=== PATIENT | female | born 1955 | race Caucasian/White ===

== ENCOUNTER 2020-04-19 18:32 | Inpatient (IN) | payer MEDICAID ==
[~2020-04-19] VITALS: Ht 152.4 cm; Wt 60.8 kg
[~2020-04-19 18:32] MED LIST: GABA300C PO; METO-292 PO; ONDA4TAB12 PO; ONDA8TAB9 PO; SUCR1ORA15 PO
[2020-04-19] MEDS ORDERED: normal saline 1000ML IV soln IV ONE (18:45)
[2020-04-19] MEDS ORDERED: proCHLORperazine 10 MG/2 ml inj IV ONE (18:50)
--- NOTE | 2020-04-19 19:01 | NUR ---
PT VERY PALE AND WEAK AND UNSTEADY ON HER FEET. CONTINUES TO DRY HEAVE AND HAS EPISODES OF MUCOID EMESIS. REPORTING PAIN TO HER RIGHT ABDOMEN. STATES NO HS OF SUCH SYMPTOMS. LARGE STERNAL SCAR NOTED TO HER CHEST. SHE REPORTS [address] BYPASS 2 YRS AGO. PT ALSO WITH MANY LAPROSCOPIC APPEARING SCARS TO HER LOWER ABDOMEN. [facility]. PRIMARY RN, ANGEL , UPDATED OF PT. RAPID COVID SWAB COLLECTED, ALTHOUGH PT REPORTS NO EXPOSURE AND THAT SHE HAS BEEN CHANDRA AT HOME AND FOLLOWING SOCIAL DISTANCING AND MASKING PRECAUTIONS.
[2020-04-19 19:33] LABS: BASOPHILS # (AUTO) 0.1 X10'3 (0-0.2); BASOPHILS % (AUTO) 0.9 % (0-1); EOSINOPHILS # (AUTO) 0.4 X10'3 (0-0.9); EOSINOPHILS % (AUTO) 3.8 % (0-6); HEMATOCRIT 40.6 % (35.0-45.0); HEMOGLOBIN 14.2 g/dl (12.0-16.0); LYMPHOCYTES # (AUTO) 0.9 X10'3 (1.1-4.8); LYMPHOCYTES % (AUTO) 9.3 % (21-51); MEAN CORPUSCULAR HEMOGLOBIN 31.8 PG (27.0-31.0); MEAN CORPUSCULAR HGB CONC 34.9 g/dL (33.0-36.5); MEAN CORPUSCULAR VOLUME 91.3 FL (78-98); MEAN PLATELET VOLUME 8.4 FL (7.4-10.4); MONOCYTES # (AUTO) 0.4 X10'3 (0-0.9); MONOCYTES % (AUTO) 4.2 % (2-12); NEUTROPHILS # (AUTO) 7.7 X10'3 (1.8-7.7); NEUTROPHILS % (AUTO) 81.8 % (42-75); PLATELET COUNT 215 X10'3 (140-440); RED BLOOD COUNT 4.45 X10'6 (4.20-5.60); RED CELL DISTRIBUTION WIDTH 12.7 % (11.5-14.5); WHITE BLOOD COUNT 9.4 X10'3 (4.5-11.0)
[2020-04-19 19:47] LABS: ALANINE AMINOTRANSFERASE 41 U/L (12-78); ALBUMIN 2.9 G/DL (3.4-5.0); ALBUMIN/GLOBULIN RATIO 0.7 (1.1-1.5); ALKALINE PHOSPHATASE 67 IU/L (46-116); ANION GAP 14 (8-16); ASPARTATE AMINO TRANSFERASE 49 U/L (10-37); BILIRUBIN,TOTAL 0.9 MG/DL (0.1-1.0); BLOOD UREA NITROGEN 38 MG/DL (7-18); CALCIUM 8.8 MG/DL (8.5-10.1); CHLORIDE 103 MMOL/L (99-107); CREATININE 1.41 MG/DL (0.40-0.90); ETHANOL < 0.010 GM/DL (0.0-0.010); GLUCOSE 169 MG/DL (70-104); LIPASE < 50 U/L (73-393); POTASSIUM 3.1 MMOL/L (3.5-5.1); SODIUM 142 MMOL/L (135-145); TOTAL CARBON DIOXIDE 25.4 MMOL/L (24-32); TOTAL PROTEIN 6.8 G/DL (6.4-8.2); eGFR 38 ML/MIN
[2020-04-19] MEDS ORDERED: aspirin 81mg tab.chew PO ONE (19:55)
[2020-04-19] MEDS ORDERED: CefTRIAXone 2gm/D5W 50ml BAG 50 ML IV ONE (20:05)
[2020-04-19 20:20] LABS: COLOR,URINE YELLOW (Yellow); GLUCOSE, URINE 250 mg/dl (Neg); KETONES,URINE >=80 mg/dl (Neg); LEUKOCYTE ESTERASE ,URINE NEGATIVE (Neg); NITRITES, URINE POSITIVE (Neg); OCCULT BLOOD,URINE LARGE (Neg); PROTEIN,URINE >=300 mg/dl (Neg)
[2020-04-19] MEDS ORDERED: metoprolol tartrate 1mg/ml inj IV ONE ×2 (20:25→23:00)
[2020-04-19 20:27] LABS: CLARITY,URINE CLEAR (Clear)
[2020-04-19 20:33] LABS: URINE AMPHETAMINE SCREEN NEGATIVE (Neg); URINE BARBITUATE SCREEN NEGATIVE (Neg); URINE BENZODIAZEPINES SCREEN NEGATIVE (Neg); URINE CANNABINOID SCREEN NEGATIVE (Neg); URINE COCAINE SCREEN NEGATIVE (Neg); URINE METHADONE SCREEN NEGATIVE (Neg); URINE OPIATE SCREEN NEGATIVE (Neg); URINE PHENCYCLIDINE SCREEN NEGATIVE (Neg)
[2020-04-19] MEDS ORDERED: heparin 10,000 units/1 ML INJ IV ONE ×2 (20:40→20:50)
[2020-04-19] MEDS ORDERED: nitroGLYCERIN 1gm ointment UD TP ONE (20:40)
[2020-04-19 20:41] LABS: UA COLLECTION TYPE STRAIGHT CATH
[2020-04-19 20:45] LABS: WBC,URINE 0-4 /HPF (0-4)
[2020-04-19 20:46] LABS: BACTERIA,URINE 4+ /HPF (Neg); MUCUS STRANDS NONE SEEN /LPF (Neg); SQUAMOUS EPITHELIAL CELL,UR FEW /LPF (FEW)
[2020-04-19 21:03] LABS: PARTIAL THROMBOPLASTIN TIME 28 SECONDS (22-32)
[2020-04-19] MEDS: heparin 25,000 UNIT/250ml bag 250 ML IV SCH (22:13)
--- NOTE | 2020-04-19 22:30 | NUR ---
MD aware of patients Blood Pressure despite previous treatment, no new orders at this time.
[2020-04-19] MEDS ORDERED: magnesium hydroxide 30ml (MOM) UD suspension PO PRN (22:45)
[2020-04-19] MEDS ORDERED: morphine 2 MG/ML inj. syringe IV PRN (22:45)
[2020-04-19] MEDS ORDERED: potassium Cl 40MEQ/1/2NS 520ml 520 ML IV PRN ×2 (22:45)
[2020-04-19] MEDS ORDERED: mag hydrox/Alum hydrox/simeth 30ml oral suspension PO PRN (22:45)
[2020-04-19] MEDS ORDERED: acetaminophen 325mg tablet PO PRN (22:45)
[2020-04-19] MEDS ORDERED: metoprolol tartrate 12.5mg (1/2 tablet) PO ONE (23:00)
[2020-04-19] MEDS ORDERED: glucagon, human recombinant 1mg kit SUBCUT PRN (23:05)
[2020-04-19] MEDS ORDERED: dextrose 50%-water 50ml dispensing syringe IV PRN ×2 (23:05)
[2020-04-19] MEDS ORDERED: MESSAGE TO PHARMACY PO ONE (23:05)
[2020-04-19] MEDS ORDERED: dextrose ORAL solution 15 GM/59 ML bottle PO PRN ×2 (23:05)
[2020-04-19] MEDS: ondansetron/PF 4mg/2ml inj IV PRN (23:36)
[2020-04-19] MEDS ORDERED: INSU100C4 SQ (23:58)
[2020-04-19] MEDS ORDERED: METF500T PO (23:58)
[2020-04-19] MEDS ORDERED: CLOP75TA34 PO (23:58)
[2020-04-19] MEDS ORDERED: OMEP-50 PO (23:58)
[2020-04-19] MEDS ORDERED: GABA300C PO (23:58)
[2020-04-19] MEDS ORDERED: METO25TA6 PO (23:58)
[2020-04-19] MEDS ORDERED: SERT25TA5 PO (23:58)
[2020-04-19] MEDS ORDERED: ATOR40TA PO (23:58)
[2020-04-20] MEDS: normal saline 1000ml 1,000 ML IV SCH ×3 (00:50→18:45)
[2020-04-20] MEDS ORDERED: metoprolol tartrate 1mg/ml inj IV ONE ×2 (01:05→03:00)
[2020-04-20] MEDS ORDERED: metoprolol tartrate 50mg tablet PO ONE (01:05)
[2020-04-20] MEDS ORDERED: metoprolol tartrate 25mg tablet PO ONE (01:10)
[2020-04-20] MEDS: metoprolol tartrate 1mg/ml inj IV SCH ×4 (01:19→03:25)
--- NOTE | 2020-04-20 02:34 | NUR ---
PAGGED DR CASTRO FOR PATIENT FOR PT BLOOD PRESSURE 222/97 MESSAGE LEFT
--- NOTE | 2020-04-20 02:49 | NUR ---
DR CASTRO RETURNED PAGE AWARE O FBLOOD PRESSURE AT 206/90
--- NOTE | 2020-04-20 03:58 | NUR ---
PAGGED DR SURESH ABOUT BP 225/96 DR CASTRO PRDERED VASOTEC 5 MG IV X1 NOW ORDER ENTERED
[2020-04-20] MEDS ORDERED: enalaprilat dihydrate 2.5mg/2ml vial IV ONE (04:05)
[2020-04-20] MEDS ORDERED: nitroGLYCERIN 1gm ointment UD TP ONE (04:16)
[2020-04-20] MEDS: amLODIPine 5mg tablet PO SCH (06:15)
[2020-04-20 07:35] LABS: BASOPHILS # (AUTO) 0.1 X10'3 (0-0.2); EOSINOPHILS % (AUTO) 0.2 % (0-6); HEMATOCRIT 41.1 % (35.0-45.0); HEMOGLOBIN 14.4 g/dl (12.0-16.0); LYMPHOCYTES # (AUTO) 0.6 X10'3 (1.1-4.8); LYMPHOCYTES % (AUTO) 6.2 % (21-51); MEAN CORPUSCULAR HEMOGLOBIN 32.5 PG (27.0-31.0); MEAN CORPUSCULAR HGB CONC 35.1 g/dL (33.0-36.5); MEAN CORPUSCULAR VOLUME 92.6 FL (78-98); MEAN PLATELET VOLUME 8.4 FL (7.4-10.4); MONOCYTES # (AUTO) 0.3 X10'3 (0-0.9); NEUTROPHILS # (AUTO) 9.2 X10'3 (1.8-7.7); NEUTROPHILS % (AUTO) 89.6 % (42-75); PLATELET COUNT 191 X10'3 (140-440); RED BLOOD COUNT 4.44 X10'6 (4.20-5.60); RED CELL DISTRIBUTION WIDTH 12.4 % (11.5-14.5); WHITE BLOOD COUNT 10.3 X10'3 (4.5-11.0)
[2020-04-20 07:49] LABS: ALANINE AMINOTRANSFERASE 28 U/L (12-78); ALBUMIN 2.1 G/DL (3.4-5.0); ALBUMIN/GLOBULIN RATIO 0.6 (1.1-1.5); ALKALINE PHOSPHATASE 64 IU/L (46-116); ANION GAP 16 (8-16); ASPARTATE AMINO TRANSFERASE 43 U/L (10-37); BILIRUBIN,TOTAL 0.6 MG/DL (0.1-1.0); BLOOD UREA NITROGEN 33 MG/DL (7-18); CALCIUM 7.5 MG/DL (8.5-10.1); CHLORIDE 104 MMOL/L (99-107); CREATININE 1.18 MG/DL (0.40-0.90); GLUCOSE 259 MG/DL (70-104); POTASSIUM 3.2 MMOL/L (3.5-5.1); SODIUM 141 MMOL/L (135-145); TOTAL CARBON DIOXIDE 21.2 MMOL/L (24-32); TOTAL PROTEIN 5.9 G/DL (6.4-8.2); eGFR 46 ML/MIN
[2020-04-20 07:51] LABS: CHOL/HDL RATIO 5.4 (0.00-4.99); CHOLESTEROL 265 MG/DL (0-200); HDL CHOLESTEROL 49 MG/DL (35-60); LDL CHOLESTEROL 187 MG/DL (50-100); TRIGLYCERIDES 107 MG/DL (20-135)
[2020-04-20] MEDS: K and/or MAG REPLACEMENT MC SCH ×2 (08:00→20:00)
[2020-04-20] MEDS ORDERED: CefTRIAXone/D5W-Rocephin 1gm 50 ML IV SCH (08:00)
[2020-04-20] MEDS: pantoprazole 40mg Tablet.DR PO SCH (08:15)
[2020-04-20] MEDS: sertraline 25mg tablet PO SCH (08:15)
[2020-04-20] MEDS: nitroGLYCERIN 1gm ointment UD TP SCH ×3 (08:15→16:00)
[2020-04-20] MEDS: clopidogrel 75mg tablet PO SCH (08:15)
[2020-04-20] MEDS: CefTRIAXone/D5W-Rocephin 1gm 50 ML IV SCH (08:15)
[2020-04-20] MEDS: metoprolol tartrate 25mg tablet PO SCH ×2 (08:17→20:40)
[2020-04-20] MEDS: gabapentin 100mg capsule PO SCH ×2 (08:17→20:40)
[2020-04-20] MEDS: atorvastatin 20mg tablet PO SCH (08:17)
[2020-04-20] MEDS: insulin Lispro (HumaLOG) vial - multi-dose SQ SCH (08:55)
--- NOTE | 2020-04-20 09:08 | NUR ---
TC FROM DAUGHTERANDRÉS, FOR CONDITION REPORT.
[2020-04-20] MEDS: heparin 10,000 units/1 ML INJ IV PRN (14:51)
[2020-04-20 15:00] VITALS: BP 116/60
[2020-04-20 17:15] VITALS: BP 116/60
[2020-04-20 18:00] VITALS: BP 144/74
--- NOTE | 2020-04-20 18:37 | NUR ---
Patient in room PCU 3016. I have received report from ANATOLY Churchill and had the opportunity to ask questions and assume patient care.
--- NOTE | 2020-04-20 18:43 | NUR ---
Problems reprioritized. Patient report given, questions answered & plan of care reviewed with Tasia LEDBETTER.
--- NOTE | 2020-04-20 18:59 | NUR ---
Patient did not eat any dinner and was last covered at breakfast. Will reassess blood sugar at 2100 and reassess for coverage need at that time.
--- NOTE | 2020-04-20 19:15 | NUR ---
Dr. Rico in to see patient. Provided telephone number for daughter. Collecting data. Requests records from [facility] in regards to CABG. Note left for health unit coordinator to get records; will also inform incoming RN.
[2020-04-20] MEDS ORDERED: aminophylline 250mg/10ml inj. IV PRN (19:25)
[2020-04-20] MEDS ORDERED: regadenoson 0.4mg/5ml syringe IV PRN (19:25)
[2020-04-20] MEDS ORDERED: nitroGLYCERIN 0.4mg SUBLingual tab SL PRN (19:25)
[2020-04-20] MEDS: lactobacillus rhamnosus 10,000 MMU CELLS/CAPSULE PO SCH (20:40)
[2020-04-20] MEDS: nitroGLYCERIN 0.4mg/hour patch TD SCH (20:41)
[2020-04-20] MEDS: insulin glargine (Lantus) pen - multi-dose SQ SCH (20:54)
--- NOTE | 2020-04-20 20:57 | NUR ---
PTT 133, stopped heparin gtt per protocol. notified.
[2020-04-20 22:44] VITALS: BP 109/59
--- NOTE | 2020-04-20 23:02 | NUR ---
Resumed heparin at 400 units per hour per protocol.
[2020-04-21] VITALS (22 sets, daily range): BP systolic 107–204; BP diastolic 43–100
[2020-04-21 03:10] LABS: BASOPHILS # (AUTO) 0.1 X10'3 (0-0.2); BASOPHILS % (AUTO) 0.7 % (0-1); EOSINOPHILS % (AUTO) 0.4 % (0-6); HEMATOCRIT 32.6 % (35.0-45.0); HEMOGLOBIN 11.1 g/dl (12.0-16.0); LYMPHOCYTES # (AUTO) 1.2 X10'3 (1.1-4.8); LYMPHOCYTES % (AUTO) 9.1 % (21-51); MEAN CORPUSCULAR HEMOGLOBIN 31.8 PG (27.0-31.0); MEAN CORPUSCULAR HGB CONC 33.9 g/dL (33.0-36.5); MEAN CORPUSCULAR VOLUME 93.7 FL (78-98); MEAN PLATELET VOLUME 8.9 FL (7.4-10.4); MONOCYTES # (AUTO) 0.9 X10'3 (0-0.9); MONOCYTES % (AUTO) 6.8 % (2-12); NEUTROPHILS # (AUTO) 10.7 X10'3 (1.8-7.7); PLATELET COUNT 223 X10'3 (140-440); RED BLOOD COUNT 3.48 X10'6 (4.20-5.60); RED CELL DISTRIBUTION WIDTH 12.9 % (11.5-14.5); WHITE BLOOD COUNT 12.9 X10'3 (4.5-11.0)
[2020-04-21 03:35] LABS: ALANINE AMINOTRANSFERASE 20 U/L (12-78); ALBUMIN 1.8 G/DL (3.4-5.0); ALBUMIN/GLOBULIN RATIO 0.6 (1.1-1.5); ALKALINE PHOSPHATASE 47 IU/L (46-116); ANION GAP 13 (8-16); ASPARTATE AMINO TRANSFERASE 25 U/L (10-37); BILIRUBIN,TOTAL 0.3 MG/DL (0.1-1.0); BLOOD UREA NITROGEN 50 MG/DL (7-18); BUN/CREATININE RATIO 24.4 (6.6-38.0); CALCIUM 7.3 MG/DL (8.5-10.1); CHLORIDE 107 MMOL/L (99-107); CREATININE 2.05 MG/DL (0.40-0.90); GLUCOSE 280 MG/DL (70-104); POTASSIUM 3.7 MMOL/L (3.5-5.1); SODIUM 141 MMOL/L (135-145); TOTAL CARBON DIOXIDE 20.8 MMOL/L (24-32); TOTAL PROTEIN 4.6 G/DL (6.4-8.2); eGFR 24 ML/MIN
[2020-04-21] MEDS: normal saline 1000ml 1,000 ML IV SCH ×2 (04:45→07:41)
--- NOTE | 2020-04-21 06:07 | NUR ---
Problems reprioritized. Patient report given, questions answered & plan of care reviewed with ANATOLY Hernandez.
--- NOTE | 2020-04-21 06:16 | NUR ---
Patient in room PCU 3016. I have received report from Tasia LEDBETTER and had the opportunity to ask questions and assume patient care. Patient asleep in bed and resting comfortably. In no acute distress. All immediate needs met at this time.
[2020-04-21] MEDS: CefTRIAXone/D5W-Rocephin 1gm 50 ML IV SCH (07:33)
[2020-04-21] MEDS: atorvastatin 20mg tablet PO SCH (07:34)
[2020-04-21] MEDS: sertraline 25mg tablet PO SCH (07:34)
[2020-04-21] MEDS: pantoprazole 40mg Tablet.DR PO SCH (07:34)
[2020-04-21] MEDS: gabapentin 100mg capsule PO SCH ×2 (07:35→20:25)
[2020-04-21] MEDS: lactobacillus rhamnosus 10,000 MMU CELLS/CAPSULE PO SCH ×2 (07:35→20:24)
[2020-04-21] MEDS: clopidogrel 75mg tablet PO SCH (07:35)
[2020-04-21] MEDS: metoprolol tartrate 25mg tablet PO SCH ×2 (08:00→20:25)
[2020-04-21] MEDS: K and/or MAG REPLACEMENT MC SCH ×2 (08:00→20:00)
[2020-04-21] MEDS: amLODIPine 5mg tablet PO SCH (08:00)
[2020-04-21] MEDS: ondansetron/PF 4mg/2ml inj IV PRN ×2 (08:52→17:25)
[2020-04-21] MEDS: metoprolol tartrate 1mg/ml inj IV PRN ×3 (09:51→10:23)
[2020-04-21] MEDS: heparin 10,000 units/1 ML INJ IV PRN (12:02)
[2020-04-21] MEDS: heparin 25,000 UNIT/250ml bag 250 ML IV SCH ×2 (12:05→20:22)
[2020-04-21] MEDS: nitroGLYCERIN 0.4mg/hour patch TD SCH (12:20)
--- NOTE | 2020-04-21 12:38 | NUR ---
New orders from Dr. Roberson: Reglan 5 mg Q6H PRN, Hydralazine 5 mg IV PRN Q6H for SBP > 160.
[2020-04-21] MEDS: metoclopramide 5 mg/ml inj IV PRN (12:48)
[2020-04-21] MEDS: hydrALAZINE 20mg/ml inj. IV PRN (13:09)
[2020-04-21] MEDS ORDERED: normal saline 1000ml 1,000 ML IV SCH (13:10)
[2020-04-21] MEDS: insulin Lispro (HumaLOG) vial - multi-dose SQ SCH (13:12)
--- NOTE | 2020-04-21 13:32 | NUR ---
Paged Dr. Roberson PAGER ID: [phone] MESSAGE: RE: Fartun John [id number]. FYI - Lexiscan is negative. OK to feed patient? Thank you. Mary [phone]
--- NOTE | 2020-04-21 16:30 | NUR ---
Case discussed with Dr. Rico with is in to round on patient. New orders placed to increase lipitor given LDL remains elevated. Start baby ASA. Start lisinopril 10 mg BID and consider increase if BP remains elevated.
--- NOTE | 2020-04-21 18:24 | NUR ---
[place]rientee documentation: I have reviewed and agree with all interventions, assessments performed and documented by ANATOLY Gray. [place] Medication Administration: For this medication-pass time frame, all medication were reviewed, dispensed, administered and documented per hospital policy by ANATOLY Gray.
--- NOTE | 2020-04-21 18:25 | NUR ---
Problems reprioritized. Patient report given, questions answered & plan of care reviewed with ANATOLY Vincent. Patient stable at transfer of care.
--- NOTE | 2020-04-21 18:40 | NUR ---
Patient in room PCU 3016. I have received report from Mary RN and ANATOLY Gomez and had the opportunity to ask questions and assume patient care.
[2020-04-21] MEDS: lisinopril 10 MG tablet PO SCH (20:24)
[2020-04-21] MEDS: insulin glargine (Lantus) pen - multi-dose SQ SCH (22:59)
[2020-04-22] VITALS (7 sets, daily range): BP systolic 106–210; BP diastolic 52–89
[2020-04-22] MEDS ORDERED: amLODIPine 5mg tablet PO ONE (03:05)
[2020-04-22] MEDS: heparin 25,000 UNIT/250ml bag 250 ML IV SCH (03:15)
--- NOTE | 2020-04-22 06:10 | NUR ---
Patient in room PCU 3016. I have received report from Melisa LEDBETTER and had the opportunity to ask questions and assume patient care.
--- NOTE | 2020-04-22 06:19 | NUR ---
Problems reprioritized. Patient report given, questions answered & plan of care reviewed with ANATOLY Barragan.
[2020-04-22 07:23] LABS: BASOPHILS % (AUTO) 0.3 % (0-1); EOSINOPHILS % (AUTO) 0.1 % (0-6); HEMATOCRIT 38.1 % (35.0-45.0); HEMOGLOBIN 13.2 g/dl (12.0-16.0); LYMPHOCYTES # (AUTO) 0.6 X10'3 (1.1-4.8); LYMPHOCYTES % (AUTO) 5.2 % (21-51); MEAN CORPUSCULAR HEMOGLOBIN 32.1 PG (27.0-31.0); MEAN CORPUSCULAR HGB CONC 34.5 g/dL (33.0-36.5); MEAN PLATELET VOLUME 9.3 FL (7.4-10.4); MONOCYTES # (AUTO) 0.7 X10'3 (0-0.9); MONOCYTES % (AUTO) 5.8 % (2-12); NEUTROPHILS # (AUTO) 10.9 X10'3 (1.8-7.7); NEUTROPHILS % (AUTO) 88.6 % (42-75); PLATELET COUNT 190 X10'3 (140-440); RED CELL DISTRIBUTION WIDTH 12.8 % (11.5-14.5); WHITE BLOOD COUNT 12.3 X10'3 (4.5-11.0)
[2020-04-22] MEDS: pantoprazole 40mg Tablet.DR PO SCH (07:30)
[2020-04-22] MEDS: metoprolol tartrate 25mg tablet PO SCH ×2 (07:31→20:00)
[2020-04-22] MEDS: nitroGLYCERIN 0.4mg/hour patch TD SCH (07:34)
[2020-04-22] MEDS: CefTRIAXone/D5W-Rocephin 1gm 50 ML IV SCH (07:38)
[2020-04-22] MEDS: heparin 10,000 units/1 ML INJ IV PRN (07:46)
[2020-04-22 07:50] LABS: ALANINE AMINOTRANSFERASE 22 U/L (12-78); ALBUMIN 2.1 G/DL (3.4-5.0); ALBUMIN/GLOBULIN RATIO 0.6 (1.1-1.5); ALKALINE PHOSPHATASE 57 IU/L (46-116); ANION GAP 15 (8-16); ASPARTATE AMINO TRANSFERASE 28 U/L (10-37); BILIRUBIN,TOTAL 0.3 MG/DL (0.1-1.0); BLOOD UREA NITROGEN 53 MG/DL (7-18); BUN/CREATININE RATIO 34.6 (6.6-38.0); CALCIUM 7.8 MG/DL (8.5-10.1); CHLORIDE 107 MMOL/L (99-107); CREATININE 1.53 MG/DL (0.40-0.90); GLUCOSE 258 MG/DL (70-104); POTASSIUM 3.5 MMOL/L (3.5-5.1); SODIUM 140 MMOL/L (135-145); TOTAL CARBON DIOXIDE 18.3 MMOL/L (24-32); TOTAL PROTEIN 5.7 G/DL (6.4-8.2); eGFR 34 ML/MIN
[2020-04-22] MEDS: lisinopril 10 MG tablet PO SCH ×2 (08:00→20:00)
[2020-04-22] MEDS: K and/or MAG REPLACEMENT MC SCH ×2 (08:00→20:00)
[2020-04-22] MEDS: atorvastatin 20mg tablet PO SCH (08:00)
[2020-04-22] MEDS: clopidogrel 75mg tablet PO SCH (08:00)
[2020-04-22] MEDS: lactobacillus rhamnosus 10,000 MMU CELLS/CAPSULE PO SCH ×2 (08:00→20:00)
[2020-04-22] MEDS: gabapentin 100mg capsule PO SCH ×2 (08:00→20:00)
[2020-04-22] MEDS: sertraline 25mg tablet PO SCH (08:00)
[2020-04-22] MEDS: furosemide 20 MG/2 ML vial IV SCH (08:22)
[2020-04-22] MEDS: ondansetron/PF 4mg/2ml inj IV PRN (08:22)
[2020-04-22] MEDS: aspirin 81mg tab.chew PO SCH (08:30)
[2020-04-22] MEDS: insulin Lispro (HumaLOG) vial - multi-dose SQ SCH (09:00)
[2020-04-22] MEDS: metoclopramide 5 mg/ml inj IV PRN (09:41)
--- NOTE | 2020-04-22 11:42 | NUR ---
PAGER ID: [phone] MESSAGE: Re: Fartun John. Room 3016A. Phenegran only available in PO form. Pharmacist recommends Compazine IV. -[facility] #[phone] Dr. Lopez paged concerning medications
[2020-04-22] MEDS ORDERED: proMETHazine 25mg rectal suppository RC PRN (11:55)
--- NOTE | 2020-04-22 12:27 | NUR ---
Harper cath removed. Pt tolerated well. 10ml of saline removed from balloon.
--- NOTE | 2020-04-22 13:59 | NUR ---
PAGER ID: [phone] MESSAGE: Re: AlvaroFartun. Room: 3013B. Pt still complaining of nausea after rectal phenegran. Not able to keep PO meds or food/liquids down. -[facility] #[id number] Dr. Lopez paged concerning Pt's nausea.
--- NOTE | 2020-04-22 16:31 | NUR ---
Pt bladder scanned; 118ml
--- NOTE | 2020-04-22 16:36 | NUR ---
PAGER ID: [phone] MESSAGE: Re: Fartun John. Room: 3013b. Pt refusing PO intake/meds due to feeling nauseated. Do you want IV fluids started due to low PO fluid intake? -[facility] #[id number] Dr. Lopez paged concerning pt's N/V and PO intake
--- NOTE | 2020-04-22 18:45 | NUR ---
Problems reprioritized. Patient report given, questions answered & plan of care reviewed with Courtney LEDBETTER.
--- NOTE | 2020-04-22 20:00 | NUR ---
report recieved from Twyla RN, patient refused NGTUBE at this moment. she does not tolerate the procedure. resting quietlly on bed. no complaining of nausea/vomiting. has moderate bm. keep monitoring
[2020-04-22] MEDS: hydrALAZINE 20mg/ml inj. IV PRN (20:38)
[2020-04-22] MEDS: normal saline 1000ml 1,000 ML IV SCH (20:41)
[2020-04-22] MEDS: insulin glargine (Lantus) pen - multi-dose SQ SCH (23:07)
[2020-04-23] VITALS (8 sets, daily range): BP systolic 109–188; BP diastolic 57–94
[2020-04-23] MEDS: hydrALAZINE 20mg/ml inj. IV PRN ×3 (02:27→22:45)
--- NOTE | 2020-04-23 04:52 | NUR ---
Page Sent promotional table spacer PAGER ID: [phone] MESSAGE: PT in room 3013b REFUSED NGTUBE, NO C/O OF NAUSEA ANYMORE. PLEASE ADVISE. [id number] (82 character message out of a maximum of 240)
--- NOTE | 2020-04-23 05:40 | NUR ---
MD CALLED BACK SHE SAID TO TRY ONE MORE TIME AND SHE WILL REPORT IT TO THE MORNING TEAM. NO NEED TO CALL HER BACK.
--- NOTE | 2020-04-23 06:05 | NUR ---
Patient in room PCU 3013. I have received report from Courtney LEDBETTER and had the opportunity to ask questions and assume patient care.
--- NOTE | 2020-04-23 06:20 | NUR ---
Problems reprioritized. Patient report given, questions answered & plan of care reviewed with Twyla LEDBETTER
[2020-04-23 06:53] LABS: BASOPHILS # (AUTO) 0.1 X10'3 (0-0.2); BASOPHILS % (AUTO) 0.5 % (0-1); EOSINOPHILS % (AUTO) 0.2 % (0-6); HEMATOCRIT 37.9 % (35.0-45.0); LYMPHOCYTES # (AUTO) 0.7 X10'3 (1.1-4.8); LYMPHOCYTES % (AUTO) 5.7 % (21-51); MEAN CORPUSCULAR HEMOGLOBIN 31.8 PG (27.0-31.0); MEAN CORPUSCULAR HGB CONC 34.4 g/dL (33.0-36.5); MEAN CORPUSCULAR VOLUME 92.4 FL (78-98); MEAN PLATELET VOLUME 9.1 FL (7.4-10.4); MONOCYTES # (AUTO) 0.6 X10'3 (0-0.9); MONOCYTES % (AUTO) 4.5 % (2-12); NEUTROPHILS # (AUTO) 10.9 X10'3 (1.8-7.7); NEUTROPHILS % (AUTO) 89.1 % (42-75); PLATELET COUNT 248 X10'3 (140-440); RED CELL DISTRIBUTION WIDTH 13.3 % (11.5-14.5); WHITE BLOOD COUNT 12.3 X10'3 (4.5-11.0)
[2020-04-23] MEDS: CefTRIAXone/D5W-Rocephin 1gm 50 ML IV SCH (07:28)
[2020-04-23] MEDS: furosemide 20 MG/2 ML vial IV SCH (07:35)
[2020-04-23] MEDS: lisinopril 10 MG tablet PO SCH ×2 (07:36→20:55)
[2020-04-23] MEDS: metoprolol tartrate 25mg tablet PO SCH ×2 (07:39→20:56)
[2020-04-23] MEDS: pantoprazole 40mg Tablet.DR PO SCH (07:46)
[2020-04-23] MEDS: clopidogrel 75mg tablet PO SCH (08:00)
[2020-04-23] MEDS: atorvastatin 20mg tablet PO SCH (08:00)
[2020-04-23] MEDS: K and/or MAG REPLACEMENT MC SCH ×2 (08:00→20:00)
[2020-04-23] MEDS: gabapentin 100mg capsule PO SCH ×2 (08:00→20:56)
[2020-04-23] MEDS: nitroGLYCERIN 0.4mg/hour patch TD SCH (08:00)
[2020-04-23] MEDS: lactobacillus rhamnosus 10,000 MMU CELLS/CAPSULE PO SCH ×2 (08:00→22:45)
[2020-04-23 08:32] LABS: ALANINE AMINOTRANSFERASE 21 U/L (12-78); ALBUMIN/GLOBULIN RATIO 0.6 (1.1-1.5); ANION GAP 16 (8-16); ASPARTATE AMINO TRANSFERASE 30 U/L (10-37); BILIRUBIN,TOTAL 0.3 MG/DL (0.1-1.0); BLOOD UREA NITROGEN 53 MG/DL (7-18); BUN/CREATININE RATIO 35.6 (6.6-38.0); CHLORIDE 101 MMOL/L (99-107); CREATININE 1.49 MG/DL (0.40-0.90); GLUCOSE 191 MG/DL (70-104); SODIUM 134 MMOL/L (135-145); TOTAL CARBON DIOXIDE 17.3 MMOL/L (24-32); TOTAL PROTEIN 5.3 G/DL (6.4-8.2); eGFR 35 ML/MIN
[2020-04-23 08:34] LABS: POTASSIUM 3.4 MMOL/L (3.5-5.1)
[2020-04-23 09:14] LABS: ALKALINE PHOSPHATASE 56 IU/L (46-116)
[2020-04-23] MEDS: insulin Lispro (HumaLOG) vial - multi-dose SQ SCH ×2 (09:15→13:49)
--- NOTE | 2020-04-23 09:47 | NUR ---
PAGER ID: [phone] MESSAGE: Re: Carl Johna. Room: 3013B. Pt has morning potassium of 3.4. Can I put replacement orders in? -[facility] #[id number] Dr. Lopez paged concerning Pt's potassium level and replacement orders.
[2020-04-23] MEDS: sertraline 25mg tablet PO SCH (10:28)
[2020-04-23] MEDS ORDERED: magnesium 4gm in 100ml NS 100 ML IV PRN (10:45)
[2020-04-23] MEDS ORDERED: potassium Cl 20 mEq SR tablet PO PRN (10:45)
[2020-04-23] MEDS ORDERED: magnesium Cl slow-release 64mg tablet PO PRN (10:45)
[2020-04-23] MEDS: potassium Cl 40MEQ/1/2NS 520ml 520 ML IV PRN (11:15)
[2020-04-23] MEDS: aspirin 81mg tab.chew PO SCH (11:39)
[2020-04-23] MEDS: metoclopramide 5 mg/ml inj IV PRN (13:25)
[2020-04-23] MEDS: normal saline 1000ml 1,000 ML IV SCH (16:56)
[2020-04-23] MEDS: metoclopramide 5 mg/ml inj IV SCH ×2 (16:57→20:59)
--- NOTE | 2020-04-23 17:10 | NUR ---
Pt blood sugar 49 - pt asymptomatic. 50mls of D50 administered IV. Will recheck blood sugar in 20 minutes.
--- NOTE | 2020-04-23 18:05 | NUR ---
Problems reprioritized. Patient report given, questions answered & plan of care reviewed with Vale LEDBETTER.
--- NOTE | 2020-04-23 18:39 | NUR ---
Patient in room PCU 3013. I have received report from Yung LEDBETTER and had the opportunity to ask questions and assume patient care.
[2020-04-23] MEDS: enoxaparin 40mg/0.4ml syringe SUBCUT SCH (21:01)
--- NOTE | 2020-04-23 22:30 | NUR ---
Lantus 14U admin., which is the same amount as 04/22. Pt tolerating only very sml amts PO fluids, AM BS: 208 and Lantus would normally be increased. SBP: 188, Hydralazine IV admin PRN as ordered.
[2020-04-23] MEDS: insulin glargine (Lantus) pen - multi-dose SQ SCH (22:56)
[2020-04-24] VITALS (22 sets, daily range): BP systolic 62–196; BP diastolic 36–88
[2020-04-24] MEDS ORDERED: lisinopril 10 MG tablet PO ONE (02:30)
--- NOTE | 2020-04-24 02:30 | NUR ---
Dr. White notified of 0200 BP: 183/81. One time Lisinopril 10mg PO ordered and admin.
[2020-04-24] MEDS: normal saline 1000ml 1,000 ML IV SCH ×2 (04:00→20:40)
--- NOTE | 2020-04-24 06:05 | NUR ---
Patient in room PCU 3013. I have received report from Vale LEDBETTER and had the opportunity to ask questions and assume patient care.
--- NOTE | 2020-04-24 06:25 | NUR ---
Problems reprioritized. Patient report given, questions answered & plan of care reviewed with Yung LEDBETTER.
[2020-04-24] MEDS: metoclopramide 5 mg/ml inj IV SCH ×4 (07:11→21:09)
[2020-04-24] MEDS: furosemide 20 MG/2 ML vial IV SCH (07:11)
[2020-04-24] MEDS: CefTRIAXone/D5W-Rocephin 1gm 50 ML IV SCH (07:11)
[2020-04-24] MEDS: pantoprazole 40mg Tablet.DR PO SCH (07:30)
[2020-04-24] MEDS: lactobacillus rhamnosus 10,000 MMU CELLS/CAPSULE PO SCH ×2 (08:00→19:32)
[2020-04-24] MEDS: atorvastatin 20mg tablet PO SCH (08:00)
[2020-04-24] MEDS: K and/or MAG REPLACEMENT MC SCH ×2 (08:00→20:00)
[2020-04-24] MEDS: clopidogrel 75mg tablet PO SCH (08:00)
[2020-04-24] MEDS: gabapentin 100mg capsule PO SCH ×2 (08:00→19:31)
[2020-04-24 08:06] LABS: BASOPHILS % (AUTO) 0.5 % (0-1); EOSINOPHILS # (AUTO) 0.1 X10'3 (0-0.9); HEMATOCRIT 41.7 % (35.0-45.0); HEMOGLOBIN 14.7 g/dl (12.0-16.0); LYMPHOCYTES # (AUTO) 0.8 X10'3 (1.1-4.8); LYMPHOCYTES % (AUTO) 9.2 % (21-51); MEAN CORPUSCULAR HEMOGLOBIN 32.6 PG (27.0-31.0); MEAN CORPUSCULAR HGB CONC 35.3 g/dL (33.0-36.5); MEAN CORPUSCULAR VOLUME 92.5 FL (78-98); MEAN PLATELET VOLUME 8.3 FL (7.4-10.4); MONOCYTES # (AUTO) 0.6 X10'3 (0-0.9); MONOCYTES % (AUTO) 7.1 % (2-12); NEUTROPHILS # (AUTO) 7.5 X10'3 (1.8-7.7); NEUTROPHILS % (AUTO) 82.2 % (42-75); PLATELET COUNT 238 X10'3 (140-440); RED BLOOD COUNT 4.51 X10'6 (4.20-5.60); WHITE BLOOD COUNT 9.1 X10'3 (4.5-11.0)
[2020-04-24] MEDS: nitroGLYCERIN 0.4mg/hour patch TD SCH (08:06)
[2020-04-24] MEDS: lisinopril 10 MG tablet PO SCH ×2 (08:06→19:33)
[2020-04-24] MEDS: metoprolol tartrate 25mg tablet PO SCH ×2 (08:07→19:32)
[2020-04-24 08:16] LABS: ALBUMIN 2.1 G/DL (3.4-5.0); ANION GAP 10 (8-16); BLOOD UREA NITROGEN 40 MG/DL (7-18); BUN/CREATININE RATIO 30.5 (6.6-38.0); CALCIUM 7.9 MG/DL (8.5-10.1); CHLORIDE 106 MMOL/L (99-107); CREATININE 1.31 MG/DL (0.40-0.90); GLUCOSE 201 MG/DL (70-104); SODIUM 139 MMOL/L (135-145); TOTAL CARBON DIOXIDE 23.1 MMOL/L (24-32); eGFR 41 ML/MIN
--- NOTE | 2020-04-24 08:29 | NUR ---
PAGER ID: [phone] MESSAGE: Re: Fartun John. Room: 3013B. Critical potassium 3.0. Will replace with IV potassium protocol. -[facility] #[id number] Dr. payan paged concerning Pt's critical potassium
[2020-04-24] MEDS: aspirin 81mg tab.chew PO SCH (08:30)
[2020-04-24] MEDS: insulin Lispro (HumaLOG) vial - multi-dose SQ SCH (09:27)
[2020-04-24] MEDS: sertraline 25mg tablet PO SCH (09:29)
[2020-04-24] MEDS: potassium Cl 40MEQ/1/2NS 520ml 520 ML IV PRN ×2 (09:43→18:00)
[2020-04-24] MEDS: hydrALAZINE 20mg/ml inj. IV PRN ×2 (10:24→23:05)
--- NOTE | 2020-04-24 11:10 | NUR ---
Pt taken down to GI lab for EGD
[2020-04-24] MEDS ORDERED: LIDOcaine Viscous 15ml cup ONE (11:12)
[2020-04-24] MEDS ORDERED: fentaNYL/PF 50MCG/1 ML 2ML syringe ONE (11:12)
[2020-04-24] MEDS ORDERED: MIDAZolam 5mg/5ml vial ONE (11:12)
--- NOTE | 2020-04-24 13:37 | NUR ---
Pt returned from Gi lab/EGD. Vitals: 122/60, HR 80, O2 96% RA, RR 16. Pt alert and oriented. Will Continue to round on Pt and recheck vitals q15min x 1 hour.
--- NOTE | 2020-04-24 13:46 | NUR ---
Initial: Pt admit with NSTEMI, emphysematous E Coli UTI, CARMELINA, and N/V. Pt on a full liquid CHO controlled diet documented with mostly 0% PO intake not meeting estimated nutrient needs. Pt vomits with PO intake and started on Reglan for possible gastroparesis per MD note. Pt refused NG tube per RN notes. Pt s/p EGD today, per results: "No findings that would explain her severe dysphagia. Multiple rings in the mid and distal esophagus, which were nonobstructing. This raises the possibility of eosinophilic esophagitis, biopsies were obtained; small superficial ulcer in the mid esophagus, raising the possibility of a pill ulcer". MD recommends ST consult. LBM 04/23. Will continue to follow closely and make recommendations as appropriate pending ST assessment. Recommendations: 1) Advance to regular diet as medically indicated following ST assessment. Pt with hx DM though A1c 6.8% and pt with poor PO intake 2) If PO intake improves with diet advancement, heart healthy CHO controlled diet 3) Pt may benefit from alternative nutrition to meet estimated nutrient needs if unable to tolerate PO intake; currently poor PO intake x 4 days 4) Bowel care per rx 5) Scaled weights per rx Addendum: 04/24/20 at [address] Amended: Links added.
[2020-04-24] MEDS ORDERED: LORazepam 1 MG tablet PO PRN (13:55)
[2020-04-24] MEDS: gabapentin 300mg capsule PO SCH (16:00)
--- NOTE | 2020-04-24 18:20 | NUR ---
Problems reprioritized. Patient report given, questions answered & plan of care reviewed with Vale LEDBETTER.
--- NOTE | 2020-04-24 18:30 | NUR ---
Patient in room PCU 3013. I have received report from Yung LEDBETTER and had the opportunity to ask questions and assume patient care.
[2020-04-24] MEDS: enoxaparin 40mg/0.4ml syringe SUBCUT SCH (19:33)
[2020-04-24] MEDS: insulin glargine (Lantus) pen - multi-dose SQ SCH (21:38)
[2020-04-25] VITALS (7 sets, daily range): BP systolic 112–170; BP diastolic 58–81
--- NOTE | 2020-04-25 06:45 | NUR ---
Problems reprioritized. Patient report given, questions answered & plan of care reviewed with Kerline LEDBETTER.
--- NOTE | 2020-04-25 06:47 | NUR ---
Patient in room PCU 3013. I have received report from Vale LEBDETTER and had the opportunity to ask questions and assume patient care.
[2020-04-25 07:31] LABS: ALANINE AMINOTRANSFERASE 27 U/L (12-78); ALBUMIN 1.6 G/DL (3.4-5.0); ALBUMIN/GLOBULIN RATIO 0.6 (1.1-1.5); ALKALINE PHOSPHATASE 47 IU/L (46-116); ANION GAP 6 (8-16); ASPARTATE AMINO TRANSFERASE 31 U/L (10-37); BASOPHILS # (AUTO) 0.1 X10'3 (0-0.2); BASOPHILS % (AUTO) 0.8 % (0-1); BILIRUBIN,TOTAL 0.2 MG/DL (0.1-1.0); BLOOD UREA NITROGEN 35 MG/DL (7-18); BUN/CREATININE RATIO 30.7 (6.6-38.0); CALCIUM 7.6 MG/DL (8.5-10.1); CHLORIDE 110 MMOL/L (99-107); CREATININE 1.14 MG/DL (0.40-0.90); EOSINOPHILS # (AUTO) 0.2 X10'3 (0-0.9); EOSINOPHILS % (AUTO) 3.3 % (0-6); GLUCOSE 111 MG/DL (70-104); HEMATOCRIT 34.3 % (35.0-45.0); HEMOGLOBIN 12.1 g/dl (12.0-16.0); LYMPHOCYTES # (AUTO) 1.5 X10'3 (1.1-4.8); LYMPHOCYTES % (AUTO) 21.2 % (21-51); MEAN CORPUSCULAR HEMOGLOBIN 32.5 PG (27.0-31.0); MEAN CORPUSCULAR HGB CONC 35.2 g/dL (33.0-36.5); MEAN CORPUSCULAR VOLUME 92.3 FL (78-98); MEAN PLATELET VOLUME 9.4 FL (7.4-10.4); MONOCYTES # (AUTO) 0.7 X10'3 (0-0.9); MONOCYTES % (AUTO) 10.2 % (2-12); NEUTROPHILS # (AUTO) 4.5 X10'3 (1.8-7.7); NEUTROPHILS % (AUTO) 64.5 % (42-75); PLATELET COUNT 199 X10'3 (140-440); POTASSIUM 3.4 MMOL/L (3.5-5.1); RED BLOOD COUNT 3.72 X10'6 (4.20-5.60); RED CELL DISTRIBUTION WIDTH 13.1 % (11.5-14.5); SODIUM 139 MMOL/L (135-145); TOTAL CARBON DIOXIDE 23.4 MMOL/L (24-32); TOTAL PROTEIN 4.4 G/DL (6.4-8.2); eGFR 48 ML/MIN
[2020-04-25] MEDS: K and/or MAG REPLACEMENT MC SCH ×2 (08:00→20:00)
[2020-04-25] MEDS: lactobacillus rhamnosus 10,000 MMU CELLS/CAPSULE PO SCH ×3 (08:00→20:50)
[2020-04-25] MEDS: metoprolol tartrate 25mg tablet PO SCH ×2 (09:08→20:51)
[2020-04-25] MEDS: lisinopril 10 MG tablet PO SCH ×2 (09:09→20:52)
[2020-04-25] MEDS: pantoprazole 40mg Tablet.DR PO SCH (09:13)
[2020-04-25] MEDS: sertraline 25mg tablet PO SCH (09:13)
[2020-04-25] MEDS: clopidogrel 75mg tablet PO SCH (09:13)
[2020-04-25] MEDS: atorvastatin 20mg tablet PO SCH (09:13)
[2020-04-25] MEDS: aspirin 81mg tab.chew PO SCH (09:13)
[2020-04-25] MEDS: metoclopramide 5 mg/ml inj IV SCH ×4 (09:14→20:53)
[2020-04-25] MEDS: potassium Cl 20 mEq SR tablet PO PRN ×2 (09:14→10:30)
[2020-04-25] MEDS: furosemide 20 MG/2 ML vial IV SCH (09:14)
[2020-04-25] MEDS: CefTRIAXone/D5W-Rocephin 1gm 50 ML IV SCH (09:15)
[2020-04-25] MEDS: nitroGLYCERIN 0.4mg/hour patch TD SCH (09:30)
[2020-04-25] MEDS: hydrALAZINE 20mg/ml inj. IV PRN (09:55)
[2020-04-25] MEDS: normal saline 1000ml 1,000 ML IV SCH (10:51)
[2020-04-25] MEDS ORDERED: lisinopril 10 MG tablet PO ONE (11:05)
[2020-04-25] MEDS: gabapentin 300mg capsule PO SCH ×3 (11:37→20:52)
[2020-04-25] MEDS: LORazepam 1 MG tablet PO SCH ×2 (11:37→20:50)
[2020-04-25] MEDS: potassium Cl 40MEQ/1/2NS 520ml 520 ML IV PRN (11:40)
--- NOTE | 2020-04-25 12:55 | NUR ---
NG tube, 14 libyan inserted at bedside, set to low intermittent suction.
[2020-04-25] MEDS ORDERED: ibuprofen 200mg tablet PO PRN (18:30)
--- NOTE | 2020-04-25 18:33 | NUR ---
Problems reprioritized. Patient report given, questions answered & plan of care reviewed with Samaria LEDBETTER.
--- NOTE | 2020-04-25 19:12 | NUR ---
I have received report from Kerline LEDBETTER and had the opportunity to ask questions and assume patient care.
[2020-04-25] MEDS: enoxaparin 40mg/0.4ml syringe SUBCUT SCH (20:52)
[2020-04-25] MEDS: insulin glargine (Lantus) pen - multi-dose SQ SCH (21:00)
[2020-04-26] VITALS (7 sets, daily range): BP systolic 116–189; BP diastolic 50–78
--- NOTE | 2020-04-26 01:29 | NUR ---
MD called regarding pt being very sleepy and unable/didn't feel urge to go to bathroom. pt was bladder scanned. scan showed 530ml. MD said to put scheduled ativan on hold and straight cath >400.
[2020-04-26] MEDS: normal saline 1000ml 1,000 ML IV SCH ×2 (03:58→20:26)
--- NOTE | 2020-04-26 06:06 | NUR ---
Problems reprioritized. Patient report given, questions answered & plan of care reviewed with Kerline LEDBETTER.
--- NOTE | 2020-04-26 06:30 | NUR ---
Patient in room PCU 3013. I have received report from ANATOLY Mera and had the opportunity to ask questions and assume patient care.
[2020-04-26 07:01] LABS: ALANINE AMINOTRANSFERASE 36 U/L (12-78); ALBUMIN 1.7 G/DL (3.4-5.0); ALBUMIN/GLOBULIN RATIO 0.6 (1.1-1.5); ALKALINE PHOSPHATASE 50 IU/L (46-116); ANION GAP 6 (8-16); ASPARTATE AMINO TRANSFERASE 43 U/L (10-37); BILIRUBIN,TOTAL 0.3 MG/DL (0.1-1.0); BLOOD UREA NITROGEN 30 MG/DL (7-18); BUN/CREATININE RATIO 26.3 (6.6-38.0); CALCIUM 7.6 MG/DL (8.5-10.1); CHLORIDE 109 MMOL/L (99-107); CREATININE 1.14 MG/DL (0.40-0.90); GLUCOSE 65 MG/DL (70-104); POTASSIUM 3.4 MMOL/L (3.5-5.1); SODIUM 138 MMOL/L (135-145); TOTAL CARBON DIOXIDE 23.2 MMOL/L (24-32); TOTAL PROTEIN 4.5 G/DL (6.4-8.2); eGFR 48 ML/MIN
[2020-04-26] MEDS: metoclopramide 5 mg/ml inj IV SCH ×4 (07:11→20:31)
[2020-04-26] MEDS: furosemide 20 MG/2 ML vial IV SCH (07:12)
[2020-04-26] MEDS: CefTRIAXone/D5W-Rocephin 1gm 50 ML IV SCH (07:12)
[2020-04-26] MEDS: clopidogrel 75mg tablet PO SCH (07:12)
[2020-04-26 07:13] LABS: BASOPHILS # (AUTO) 0.1 X10'3 (0-0.2); BASOPHILS % (AUTO) 1.1 % (0-1); EOSINOPHILS # (AUTO) 0.4 X10'3 (0-0.9); EOSINOPHILS % (AUTO) 6.4 % (0-6); HEMOGLOBIN 12.9 g/dl (12.0-16.0); LYMPHOCYTES # (AUTO) 1.6 X10'3 (1.1-4.8); LYMPHOCYTES % (AUTO) 22.3 % (21-51); MEAN CORPUSCULAR HEMOGLOBIN 32.8 PG (27.0-31.0); MEAN CORPUSCULAR HGB CONC 35.7 g/dL (33.0-36.5); MEAN CORPUSCULAR VOLUME 91.8 FL (78-98); MEAN PLATELET VOLUME 9.1 FL (7.4-10.4); MONOCYTES # (AUTO) 0.7 X10'3 (0-0.9); MONOCYTES % (AUTO) 10.4 % (2-12); NEUTROPHILS # (AUTO) 4.2 X10'3 (1.8-7.7); NEUTROPHILS % (AUTO) 59.8 % (42-75); PLATELET COUNT 191 X10'3 (140-440); RED BLOOD COUNT 3.92 X10'6 (4.20-5.60)
[2020-04-26] MEDS: aspirin 81mg tab.chew PO SCH (07:16)
[2020-04-26] MEDS: lisinopril 10 MG tablet PO SCH ×2 (07:16→20:31)
[2020-04-26] MEDS: atorvastatin 20mg tablet PO SCH (07:16)
[2020-04-26] MEDS: gabapentin 300mg capsule PO SCH ×2 (07:17→20:30)
[2020-04-26] MEDS: sertraline 25mg tablet PO SCH (07:17)
[2020-04-26] MEDS: lactobacillus rhamnosus 10,000 MMU CELLS/CAPSULE PO SCH ×2 (07:17→20:31)
[2020-04-26] MEDS: metoprolol tartrate 25mg tablet PO SCH ×2 (07:17→20:31)
[2020-04-26] MEDS: pantoprazole 40mg Tablet.DR PO SCH (07:17)
[2020-04-26] MEDS: K and/or MAG REPLACEMENT MC SCH ×3 (08:00→20:00)
[2020-04-26] MEDS ORDERED: magnesium Cl slow-release 64mg tablet PO PRN (11:35)
[2020-04-26] MEDS ORDERED: potassium Cl 40MEQ/1/2NS 520ml 520 ML IV PRN (11:35)
[2020-04-26] MEDS ORDERED: magnesium 4gm in 100ml NS 100 ML IV PRN (11:35)
[2020-04-26] MEDS ORDERED: potassium Cl 20 mEq SR tablet PO PRN (11:35)
[2020-04-26] MEDS: potassium Cl 20 mEq SR tablet PO PRN ×3 (11:54→20:30)
--- NOTE | 2020-04-26 15:30 | NUR ---
Patient in room PCU 3013. I have received report from Kerline Luna RN and Krissy gordillo and had the opportunity to ask questions and assume patient care.
--- NOTE | 2020-04-26 15:45 | NUR ---
I have reviewed and agree with pt's 0800 physical assessment except pt's NGT is currently in place without suction per MD orders and pt without c/o nausea/vomiting, will continue to monitor.
[2020-04-26] MEDS: nitroGLYCERIN 0.4mg/hour patch TD SCH (15:55)
--- NOTE | 2020-04-26 18:31 | NUR ---
Problems reprioritized. Patient report given, questions answered & plan of care reviewed with Jasmin LEDBETTER.
--- NOTE | 2020-04-26 18:51 | NUR ---
Patient in room PCU 3013. I have received report from Serenity LEDBETTER and had the opportunity to ask questions and assume patient care. Pt sitting up in bed working on dinner tray. No signs of distress, will continue to monitor.
[2020-04-26] MEDS: LORazepam 0.5 MG tablet PO SCH (20:30)
[2020-04-26] MEDS: enoxaparin 40mg/0.4ml syringe SUBCUT SCH (20:32)
[2020-04-26] MEDS: insulin glargine (Lantus) pen - multi-dose SQ SCH (20:44)
[2020-04-27 02:00] VITALS: BP 126/75
--- NOTE | 2020-04-27 06:28 | NUR ---
Patient in room PCU 3013. I have received report from ANATOLY Castellanos and had the opportunity to ask questions and assume patient care.
--- NOTE | 2020-04-27 06:28 | NUR ---
Problems reprioritized. Patient report given, questions answered & plan of care reviewed with Nesha LEDBETTER.
[2020-04-27 07:02] VITALS: BP 177/86
[2020-04-27] MEDS: nitroGLYCERIN 0.4mg/hour patch TD SCH (07:35)
[2020-04-27] MEDS: atorvastatin 20mg tablet PO SCH (07:36)
[2020-04-27] MEDS: lisinopril 10 MG tablet PO SCH (07:36)
[2020-04-27] MEDS: pantoprazole 40mg Tablet.DR PO SCH (07:36)
[2020-04-27] MEDS: clopidogrel 75mg tablet PO SCH (07:36)
[2020-04-27] MEDS: metoclopramide 5 mg/ml inj IV SCH ×2 (07:36→12:46)
[2020-04-27] MEDS: sertraline 25mg tablet PO SCH (07:36)
[2020-04-27] MEDS: aspirin 81mg tab.chew PO SCH (07:36)
[2020-04-27] MEDS: lactobacillus rhamnosus 10,000 MMU CELLS/CAPSULE PO SCH (07:36)
[2020-04-27] MEDS: gabapentin 300mg capsule PO SCH (07:36)
[2020-04-27] MEDS: LORazepam 1 MG tablet PO SCH (07:37)
[2020-04-27] MEDS: LORazepam 0.5 MG tablet PO SCH (07:37)
[2020-04-27] MEDS: furosemide 20 MG/2 ML vial IV SCH (07:37)
[2020-04-27] MEDS: metoprolol tartrate 25mg tablet PO SCH (07:37)
[2020-04-27 08:00] VITALS: BP_SYST 107; BP_SYST 111; BP_SYST 126; BP_DIAS 51; BP_DIAS 61; BP_DIAS 63
[2020-04-27] MEDS: K and/or MAG REPLACEMENT MC SCH ×2 (08:00)
[2020-04-27] MEDS ORDERED: ASPI-1265 PO (08:42)
[2020-04-27] MEDS ORDERED: LISI10TA4 PO (08:42)
[2020-04-27] MEDS ORDERED: metoprolol tartrate tablet PO (08:42)
[2020-04-27] MEDS ORDERED: FURO-150 PO (08:42)
[2020-04-27] MEDS ORDERED: METO-292 PO (08:43)
--- NOTE | 2020-04-27 09:20 | NUR ---
Dr Lopez PAGER ID: [phone] MESSAGE: [id number]- Denia John advanced diet to [facility] soft. DC NG and ok to dc or do you want me to wait until after lunch? Also rechecking K yesterday was 3.4. Thank you- Nesha [phone]
[2020-04-27 10:11] VITALS: BP 126/63
--- NOTE | 2020-04-27 11:05 | NUR ---
Dr. Lopez ordered for NG tube to be dc'd. Dr. Lopez does want patient to have lunch prior to see if patient able to tolerated diet before dc. Patient aware.
--- NOTE | 2020-04-27 11:50 | NUR ---
NG tube dc'd patient tolerated well.
[2020-04-27 12:04] VITALS: BP 135/76
--- NOTE | 2020-04-27 12:57 | NUR ---
Patient tolerated lunch well. Patient smiling and states, "I'm so happy I feel so good. I don't have any stomach pain or throat pain." Patient daughter Aliya called and patient is ready for dc. Awaiting for Brent arrival for dc. Discussed with patient discharge instructions, new prescriptions and home med changes made. Patient verbalizes understanding of teaching and states she does not have questions. Patient exclaimed, "Yay, I'm so excited. My daughter will be happy I'm going home."
--- NOTE | 2020-04-27 13:36 | NUR ---
This RN was on lunch when patient was dc'd. Clover RN, Resource RN dc'd IV and discharged patient.
--- NOTE | 2020-04-28 13:20 | NUR ---
CASE MANAGEMENT DISCHARGE FOLLOW UP: T/c to pt, voicemail box is full, unable to leave message. [id number] T/c to pt's daughter, Aliya, who is also [facility] caregiver. Line picked up and then hung up. Unable to leave message.
== END 2020-04-27 13:34 | disposition home health service (06) | DRG 720 ==
LOC: ER 18:32 → ED HOLD 22:44 → EDBEDREQSVC 04-20 11:03 → PCU 3S 04-20 13:28
PROVIDERS: ADMIT Internal Medicine; ATTEND Internal Medicine
PROC: 4A02XM4 Measurement of Cardiac Total Activity, External Approach (ICD-10-PCS; 2020-04-21)
PROC: 3E073KZ Introduction of Other Diagnostic Substance into Coronary Artery, Percutaneous Approach (ICD-10-PCS; 2020-04-21)
PROC: 0DB28ZX Excision of Middle Esophagus, Via Natural or Artificial Opening Endoscopic, Diagnostic (ICD-10-PCS; principal; 2020-04-24)
DX: A41.9 Sepsis, unspecified organism (principal); I21.4 Non-ST elevation (NSTEMI) myocardial infarction; E43 Unspecified severe protein-calorie malnutrition; B96.20 Unspecified Escherichia coli [E. coli] as the cause of diseases classified elsewhere; E11.319 Type 2 diabetes mellitus with unspecified diabetic retinopathy without macular edema; E11.40 Type 2 diabetes mellitus with diabetic neuropathy, unspecified; E11.51 Type 2 diabetes mellitus with diabetic peripheral angiopathy without gangrene; E78.5 Hyperlipidemia, unspecified; E86.0 Dehydration; F20.9 Schizophrenia, unspecified; F31.9 Bipolar disorder, unspecified; I25.10 Atherosclerotic heart disease of native coronary artery without angina pectoris; J44.9 Chronic obstructive pulmonary disease, unspecified; K22.10 Ulcer of esophagus without bleeding; K57.30 Diverticulosis of large intestine without perforation or abscess without bleeding; K80.20 Calculus of gallbladder without cholecystitis without obstruction; B19.20 Unspecified viral hepatitis C without hepatic coma; E87.6 Hypokalemia; Z20.822 Contact with and (suspected) exposure to COVID-19; F41.9 Anxiety disorder, unspecified; N17.9 Acute kidney failure, unspecified; N30.80 Other cystitis without hematuria; I12.9 Hypertensive chronic kidney disease with stage 1 through stage 4 chronic kidney disease, or unspecified chronic kidney disease; E11.22 Type 2 diabetes mellitus with diabetic chronic kidney disease; N18.9 Chronic kidney disease, unspecified; Z79.02 Long term (current) use of antithrombotics/antiplatelets; Z79.82 Long term (current) use of aspirin; Z82.0 Family history of epilepsy and other diseases of the nervous system; Z83.3 Family history of diabetes mellitus; Z86.73 Personal history of transient ischemic attack (TIA), and cerebral infarction without residual deficits; Z87.891 Personal history of nicotine dependence; Z95.1 Presence of aortocoronary bypass graft; Z79.84 Long term (current) use of oral hypoglycemic drugs; Z79.899 Other long term (current) drug therapy; Z68.26 Body mass index [BMI] 26.0-26.9, adult; Z88.5 Allergy status to narcotic agent
CPT/HCPCS: 36415; 43239; 71045; 74176; 74177; 78452; 80048; 80053; 80061; 80305; 80320; 81001; 82948; 83036; 83605; 83690; 83880; 84132; 84145; 84484; 85025; 85730; 87040; 87077; 87081; 87088; 87186; 87635; 92508; 92616; 93005; 93017; 93306; 93308; 96361; 96365; 96375; 97116; 97162; 97530; 99152; 99291; A4620; A9500; C9803; G0378; J0280; J0360; J0696; J0780; J1644; J1650; J1815; J1940; J2250; J2270; J2405; J2765; J2785; J3010; J3480; J3490; J7030; J7040